=== PATIENT | female | born 1955 | race African-American/Black ===

== ENCOUNTER → 2016-09-09 | Outpatient (CLI) | payer BC ==
[~2016-09-09] MED LIST: ACETAMINOPHEN325 MG PO
--- NOTE | ~2016-09-09 | CR170 ---
[facility] A Service of [facility] & [facility] RADIOLOGY TEXT RESULTS PATIENT: GLENNA CAMACHO LOCATION: [facility] : 57 UNIT #: [id number] AGE: [address]: MARTA BREWSTER MD SEX: F ORDER DR: [id number] [facility] [address] [place], [place] [address] [id number] O MR#: [id number] Acc #: [id number] NAME: GLENNA CAMACHO : 1955 SEX: F STUDY DATE/TIME: 09/09/2016 12:51 UNIT: [facility] ROOM: STUDY DESCRIPTION: CR Knee 2 Views Rt Attending Physician: Marta Brewster M.D. Ordering Physician: Marta Brewster M.D. Primary Care Physician: Marta Brewster M.D. MEDICAL IMAGING REPORT This report is preliminary unless electronic signature is present EXAM Right knee 2 views, 09/09/2016 HISTORY Right knee pain and edema for 2 weeks after dancing at a wedding. Persistent pain. FINDINGS AP and lateral projection of the knee shows smooth articular anatomy without indication of fracture or dislocation at the major weight-bearing surface of the knee. There is no indication of radiopaque foreign body about the knee surface or joint effusion. IMPRESSION Normal right knee. Dictated by... Rm Patel M.D. THIS IS AN ELECTRONICALLY VERIFIED REPORT Rm Patel M.D. at 09/10/2016 7:23 AM SANG/aidan TD: 09/10/2016 07:10 JOB #: [id number] MEDICAL IMAGING REPORT Page 1 of 1 COPY
--- NOTE | ~2016-09-09 | CR169 ---
[facility] A Service of [facility] & [facility] RADIOLOGY TEXT RESULTS PATIENT: GLENNA CAMACHO LOCATION: [facility] : 57 UNIT #: [id number] AGE: [address]: MARTA BREWSTER MD SEX: F ORDER DR: [id number] [facility] [address] [place], [place] [address] [id number] O MR#: [id number] Acc #: [id number] NAME: GLENNA CAMACHO : 1955 SEX: F STUDY DATE/TIME: 09/09/2016 12:50 UNIT: [facility] ROOM: STUDY DESCRIPTION: CR Knee 2 Views Lt Attending Physician: Marta Brewster M.D. Ordering Physician: Marta Brewster M.D. Primary Care Physician: Marta Brewster M.D. MEDICAL IMAGING REPORT This report is preliminary unless electronic signature is present EXAM Left knee 2 views 09/09/2016 HISTORY Left knee pain and edema for 2 weeks after dancing at a wedding. Persistent pain. FINDINGS AP and lateral projection of the knee shows smooth articular anatomy without indication of fracture or dislocation at the major weight-bearing surface of the knee. There is no indication of radiopaque foreign body about the knee surface or joint effusion. IMPRESSION Normal knee. Dictated by... Rm Patel M.D. THIS IS AN ELECTRONICALLY VERIFIED REPORT Rm Patel M.D. at 09/10/2016 7:23 AM SANG/jolynn TD: 09/10/2016 07:10 JOB #: [id number] MEDICAL IMAGING REPORT Page 1 of 1 COPY
== END | disposition home or self-care (01) ==
LOC: CRAD 12:37
DX: M25.561 Pain in right knee (principal); M25.562 Pain in left knee
CPT/HCPCS: 73560